=== PATIENT | female | born 1930 | race Caucasian/White ===

== ENCOUNTER 2016-09-19 17:49 | Inpatient (IN) ==
[2016-09-19] MEDS ORDERED: TYLENOL PR PRN (20:41)
[2016-09-19] MEDS ORDERED: ATROPINE 1 % OPHTH SOLN SL PRN (20:42)
[2016-09-19] MEDS ORDERED: ATIVAN SL PRN (20:53)
[2016-09-19] MEDS ORDERED: ATIVAN SL SCH (21:00)
[2016-09-20] MEDS ORDERED: LORAZEPAM ORAL CONCENTRATE PRN (05:50)
[2016-09-20] MEDS ORDERED: ATIVAN SCH (06:00)
[2016-09-20] MEDS: LORAZEPAM ORAL CONCENTRATE SCH ×5 (06:15→23:33)
--- NOTE | 2016-09-20 08:10 | PROGRESS NOTE ---
DATE: 09/20/2016 SUBJECTIVE: Patient is confused and disoriented. No family is currently in the room. OBJECTIVE: Vital Signs: Temperature 97, pulse 88, respiratory rate 19, BP 141/96, saturation 100% on room air. General: Patient is awake and alert but confused and disoriented. She does not follow commands or answer questions. HEENT: Normocephalic, atraumatic. Neck: Supple. CV: Regular rate. Chest: Clear. Abdomen: Soft. ASSESSMENT: 1. Dementia. 2. Moderate to severe protein calorie malnutrition. 3. Ls-[id number]-mpyoefkwvdx. 4. [facility] hospice care. 5. Hypertension. 6. B12 deficiency. 7. Others. PLAN: We will continue [facility] hospice care. Continue to follow. Further orders as needed. cc: Juan Daniel De Anda MD
--- NOTE | 2016-09-20 08:57 | HISTORY AND PHYSICAL ---
Please note: This admission is for general inpatient hospice. CHIEF COMPLAINT: Overall declining health secondary to Alzheimer's. HISTORY OF PRESENTING ILLNESS: This is an 86-year-old, female, who was admitted to [facility] on 08/27/2016 after she had been having some increased agitation, combativeness, and has been at [facility] since that time. She has had an overall decline in her health. Apparently, having some difficulty swallowing. They had a team meeting yesterday with family, case hardener, and the nurse, and it was determined that the patient was not going to have any improvement in her overall status as she is declining in health with weight loss, and it was determined that she become a hospice patient. They consulted [facility] who felt that she needed general inpatient hospice at this time and, so , she was admitted to [facility] for general inpatient hospice. PAST MEDICAL HISTORY: Anemia, adrenal insufficiency, vitamin B12/vitamin D deficiency, dyslipidemia, hypertension, coronary artery disease, COPD, GERD, Crohn's, rheumatoid arthritis, CHF, and Alzheimer's dementia. PAST SURGICAL HISTORY: Hysterectomy, tonsillectomy, total hip, and a colon resection. FAMILY HISTORY: Noncontributory. SOCIAL HISTORY: Prior to her admission to [facility], she was living alone but had family that was checking on her. She has no history of tobacco, alcohol, or illicit drug use. ALLERGIES: Codeine and Lexapro. HOME MEDICATIONS: Will not be restarted at this time. I do not have a complete list, and it is not necessary to obtain one at this time. LABORATORY DATA: We will not be obtaining any labs or x-rays on this patient at this time. REVIEW OF SYSTEMS: Unable to obtain due to patient's lethargy. PHYSICAL EXAMINATION: VITAL SIGNS: On arrival, she had a temperature of 97.7 degrees, pulse of 87, respirations 18, blood pressure 125/83. Saturating 100% on room air. GENERAL: This is an 86-year-old female who is lying in the bed and unable to answer questions. No family at bedside at this time. Information has been obtained from previous medical records and [facility] records. HEENT: Appears normocephalic, atraumatic. Pupils are equal, round, reactive to light. Extraocular movements unable to assess at this time. NECK: Supple. LUNGS: Clear to auscultation bilaterally with equal lung expansion and chest wall movement. HEART: Regular rate and rhythm. No murmurs, rubs, or gallops. ABDOMEN: Soft, nontender, nondistended. Bowel sounds were present x4 quadrants. EXTREMITIES: Patient is thin, emaciated, cachectic. NEUROLOGIC: Unable to obtain at this time due to patient's lethargy. ASSESSMENT AND PLAN: 1. Dementia. 2. Npeplvaj-ua-vqamyg protein calorie malnutrition. 3. Hypertension. 4. B12 deficiency. PLAN: This patient has been admitted to the [facility] for general inpatient services under [facility]. We will give atropine 1% solution sublingually q. 2 hours p.r.n., Ativan oral concentrate 1 mg q. 8 hours, Roxanol 5-20 mL sublingually q 1 hour and hospice will be following this patient throughout the remainder of her general inpatient stay. Pt is a DNR. Dictated by ELDER Yeung for Juan Daniel De Anda MD cc: ELDER Yeung MD [facility]
[2016-09-20] MEDS: ROXANOL CONC. LIQUID SL PRN ×2 (11:11→12:15)
[2016-09-21] MEDS: LORAZEPAM ORAL CONCENTRATE SCH ×3 (02:58→09:40)
[2016-09-21 05:38] VITALS: BP 104/78
--- NOTE | 2016-09-21 10:06 | PROGRESS NOTE ---
DATE: 09/21/2016 SUBJECTIVE: The patient is currently sedated and sleeping this morning. She is in no respiratory distress. OBJECTIVE: Vital Signs: Temp 98 degrees, pulse 106, respiratory 16, BP 104/78, satting 100% on 3 L. General: Patient is awake, alert. The patient is lying in bed. She is currently in no respiratory distress. She does not respond to commands, does not follow commands. HEENT: Normocephalic. Neck: Supple. CV: Regular rate. Chest: Clear. Abdomen: Soft, cachectic. LABS: No labs today. ASSESSMENT: 1. Dementia. 2. Do not resuscitate. 3. General inpatient hospice care. 4. Moderate to severe protein calorie malnutrition. 5. Hypertension. 6. Acute anxiety, appears to have improved with medications. cc: Juan Daniel De Anda MD
[2016-09-21] MEDS: ROXANOL CONC. LIQUID SL PRN (10:08)
--- NOTE | 2016-09-26 13:46 | DISCHARGE SUMMARY ---
ADMISSION DATE: 09/19/2016 DISCHARGE DATE: 09/21/2016 SUMMARY: DIAGNOSES: 1. Dementia. 2. Moderate to severe protein calorie malnutrition. 3. Hypertension. 4. B12 deficiency. 5. General inpatient hospice care. HOSPITAL COURSE: Ms. Montaño presented to the hospital from [facility] after having an overall decline in her health. A family meeting was held and it was decided that the patient would be placed on inpatient hospice under [facility]. She did receive comfort measures and at 11:50 on the night, the patient was found with no heartbeat or respirations, and was pronounced. Family was at the bedside with the patient. Dictated by ELDER Lobo for Juan Daniel De Anda MD cc: ELDER Lobo MD
== END 2016-09-21 11:52 | disposition expired ==
LOC: P.DIRADM 17:49 → P.MEDSURG 18:42
PROVIDERS: ATTEND Family Medicine